=== PATIENT | male | born 1960 | race Caucasian/White ===

== ENCOUNTER → 2016-03-10 | Outpatient (REF) | payer BC ==
[2016-03-10 18:31] LABS: MEAN CORPUSCULAR HEMOGLOBIN 31.6 pg (27.0-33.0); MEAN CORPUSCULAR HGB CONC 33.2 g/dl (32.0-36.5); MEAN CORPUSCULAR VOLUME 95.1 fl (80.0-96.0); RED CELL DISTRIBUTION WIDTH 13.5 % (11.5-14.5); WHITE BLOOD COUNT 6.2 K/mm3 (4.0-10.0)
[2016-03-10 19:35] LABS: URIC ACID 4.6 MG/DL (3.5-7.2)
== END ==
LOC: M SFHCCLAY 08:50
PROVIDERS: ATTEND Nurse Practitioner Family
DX: R79.89 Other specified abnormal findings of blood chemistry (principal); R73.01 Impaired fasting glucose; E78.4 Other hyperlipidemia; M10.9 Gout, unspecified; E55.9 Vitamin D deficiency, unspecified

== ENCOUNTER → 2016-08-15 | Outpatient (REF) | payer OTHER ==
[2016-08-15 12:17] LABS: URIC ACID 4.9 MG/DL (3.5-7.2)
== END ==
LOC: M LABDRAW1 11:17
PROVIDERS: ATTEND Nurse Practitioner Family
DX: E55.9 Vitamin D deficiency, unspecified (principal); E11.69 Type 2 diabetes mellitus with other specified complication; M10.9 Gout, unspecified; E78.4 Other hyperlipidemia

== ENCOUNTER → 2017-04-14 | Outpatient (CLI) | payer OTHER, MEDICAID ==
[2017-04-14 10:59] LABS: HEMATOCRIT 40.4 % (42.0-52.0); HEMOGLOBIN 13.4 g/dl (14.0-18.0); MEAN CORPUSCULAR HEMOGLOBIN 30.5 pg (27.0-33.0); MEAN CORPUSCULAR HGB CONC 33.2 g/dl (32.0-36.5); PLATELET COUNT, AUTOMATED 222 10^3/uL (150-450); RED BLOOD COUNT 4.39 10^6/uL (4.30-6.10); RED CELL DISTRIBUTION WIDTH 12.8 % (11.5-14.5); WHITE BLOOD COUNT 5.5 10^3/uL (4.0-10.0)
[2017-04-14 11:15] LABS: ALBUMIN 4.1 GM/DL (3.2-5.2); ALBUMIN/GLOBULIN RATIO 1.28 (1.00-1.93); ALKALINE PHOSPHATASE 33 U/L (45-117); ALT/SGPT 27 U/L (12-78); ANION GAP 8 MEQ/L (8-16); AST/SGOT 17 U/L (7-37); BILIRUBIN,TOTAL 0.4 MG/DL (0.2-1.0); BLOOD UREA NITROGEN 23 MG/DL (7-18); CALCIUM LEVEL 8.8 MG/DL (8.5-10.1); CARBON DIOXIDE LEVEL 27 MEQ/L (21-32); CHLORIDE LEVEL 106 MEQ/L (98-107); CHOLESTEROL LEVEL 140 MG/DL (<200); CREATININE FOR GFR 0.93 MG/DL (0.70-1.30); GLOMERULAR FILTRATION RATE > 60.0 (>56); GLUCOSE, FASTING 111 MG/DL (70-100); HDL CHOLESTEROL 35 MG/DL (>40); LDL CHOLESTEROL 67.2 MG/DL (<100); NON-HDL-C 105 MG/DL; POTASSIUM SERUM 4.4 MEQ/L (3.5-5.1); SODIUM LEVEL 141 MEQ/L (136-145); TOTAL PROTEIN 7.3 GM/DL (6.4-8.2); TRIGLYCERIDES LEVEL 189 MG/DL (<150); URIC ACID 4.3 MG/DL (3.5-7.2)
[2017-04-14 11:16] LABS: ESTIMATED AVERAGE GLUCOSE 134 MG/DL (60-110); HEMOGLOBIN A1c 6.3 %
== END ==
LOC: M WUC 08:50
DX: E55.9 Vitamin D deficiency, unspecified (principal); M10.9 Gout, unspecified; E78.4 Other hyperlipidemia; E11.69 Type 2 diabetes mellitus with other specified complication; I10 Essential (primary) hypertension
CPT/HCPCS: 84550

== ENCOUNTER → 2018-01-13 | Outpatient (CLI) | payer OTHER, MEDICAID ==
[2018-01-13 17:59] LABS: APPEARANCE, URINE CLEAR (CLEAR); BACTERIA, URINE AUTO NEGATIVE (NEGATIVE); BILIRUBIN, URINE AUTO NEGATIVE (NEGATIVE); BLOOD, URINE BLOOD NEGATIVE (NEGATIVE); COLOR, URINE YELLOW (YELLOW); GLUCOSE, URINE (UA) AUTO NEGATIVE (NEGATIVE); KETONE, URINE AUTO NEGATIVE (NEGATIVE); LEUKOCYTE ESTERASE, URINE AUTO NEGATIVE (NEGATIVE); NITRITE, URINE AUTO NEGATIVE (NEGATIVE); PROTEIN, URINE AUTO NEGATIVE (NEGATIVE); RBC, URINE AUTO 1 /HPF (0-3); SQUAMOUS EPITHELIAL CELL UR AU 0 /HPF (0-6); WBC, URINE AUTO 0 /HPF (0-3)
[2018-01-13 18:07] LABS: CHOLESTEROL LEVEL 135 MG/DL (<200); CHOLESTEROL RISK RATIO 4.821 (<5); HDL CHOLESTEROL 28 MG/DL (>40); LDL CHOLESTEROL 72 MG/DL (<100); NON-HDL-C 107 MG/DL; TRIGLYCERIDES LEVEL 175 MG/DL (<150); URIC ACID 3.9 MG/DL (3.5-7.2)
[2018-01-13 18:19] LABS: ESTIMATED AVERAGE GLUCOSE 143 MG/DL (60-110); HEMOGLOBIN A1c 6.6 %
[2018-01-13 19:05] LABS: MALB URINE SIEMENS 12.3 MG/L; MAU/CREAT RATIO 9.6 MCG/MG (0.0-30.0); TOTAL PROTEIN,RANDOM URINE 12.6 MG/DL (0.0-12.0)
[2018-01-14 10:28] LABS: TOTAL 25(OH) VITAMIN D 42.6 NG/ML (30.0-100.0)
== END ==
LOC: M WUC 09:36
DX: E11.69 Type 2 diabetes mellitus with other specified complication (principal); E78.49 Other hyperlipidemia; M10.9 Gout, unspecified; E55.9 Vitamin D deficiency, unspecified
CPT/HCPCS: 84550

== ENCOUNTER → 2018-01-29 | Outpatient (CLI) | payer OTHER ==
[2018-01-29 20:46] LABS: GLOMERULAR FILTRATION RATE > 60.0 (>56)
[2018-01-29 20:46] LABS: BLOOD UREA NITROGEN 20 MG/DL (7-18)
== END ==
LOC: M WUC 15:55
DX: R91.8 Other nonspecific abnormal finding of lung field (principal)
CPT/HCPCS: 82565

== ENCOUNTER → 2018-01-31 | Outpatient (CLI) | payer OTHER ==
[~2018-01-31] MED LIST: ISOVUE-370 76% 100ML VIAL (Q9967) As Ordered
== END ==
LOC: M RAD 14:36
DX: R91.8 Other nonspecific abnormal finding of lung field (principal)
CPT/HCPCS: Q9967

== ENCOUNTER → 2018-08-08 | Outpatient (CLI) | payer OTHER, MEDICAID ==
[2018-08-08 13:07] LABS: HEMATOCRIT 38.9 % (42.0-52.0); MEAN CORPUSCULAR HGB CONC 33.4 g/dl (32.0-36.5); MEAN CORPUSCULAR VOLUME 95.8 fl (80.0-96.0); PLATELET COUNT, AUTOMATED 196 10^3/uL (150-450); RED BLOOD COUNT 4.06 10^6/uL (4.30-6.10); WHITE BLOOD COUNT 4.9 10^3/uL (4.0-10.0)
[2018-08-08 13:17] LABS: ALT/SGPT 59 U/L (12-78); BILIRUBIN,TOTAL 0.6 MG/DL (0.2-1.0); BLOOD UREA NITROGEN 23 MG/DL (7-18); CALCIUM LEVEL 9.4 MG/DL (8.5-10.1); CARBON DIOXIDE LEVEL 31 MEQ/L (21-32); CHLORIDE LEVEL 103 MEQ/L (98-107); CHOLESTEROL LEVEL 152 MG/DL (<200); CHOLESTEROL RISK RATIO 5.066 (<5); CREATININE FOR GFR 1.04 MG/DL (0.70-1.30); GLOMERULAR FILTRATION RATE > 60.0 (>56); GLUCOSE, FASTING 120 MG/DL (70-100); HDL CHOLESTEROL 30 MG/DL (>40); LDL CHOLESTEROL 59 MG/DL (<100); NON-HDL-C 122 MG/DL; POTASSIUM SERUM 4.6 MEQ/L (3.5-5.1); SODIUM LEVEL 139 MEQ/L (136-145); TOTAL PROTEIN 7.2 GM/DL (6.4-8.2); TRIGLYCERIDES LEVEL 316 MG/DL (<150); URIC ACID 4.5 MG/DL (3.5-7.2)
[2018-08-08 13:19] LABS: TOTAL 25(OH) VITAMIN D 26.9 NG/ML (30.0-100.0)
[2018-08-08 14:19] LABS: HEMOGLOBIN A1c 6.5 %
== END ==
LOC: M WUC 08:28
PROVIDERS: ATTEND Nurse Practitioner Family
DX: I10 Essential (primary) hypertension (principal); E11.69 Type 2 diabetes mellitus with other specified complication; M10.9 Gout, unspecified; E55.9 Vitamin D deficiency, unspecified; E78.49 Other hyperlipidemia

== ENCOUNTER → 2019-02-23 | Outpatient (CLI) | payer OTHER, MEDICAID ==
[2019-02-23 13:39] LABS: HEMOGLOBIN A1c 6.7 %
[2019-02-23 13:44] LABS: CHOLESTEROL RISK RATIO 5.032 (<5)
[2019-02-23 13:54] LABS: CREATININE, URINE 77.8 MG/DL; MALB URINE SIEMENS 7.6 MG/L; MAU/CREAT RATIO 9.7 MCG/MG (0.0-30.0)
== END ==
LOC: M WUC 08:16
PROVIDERS: ATTEND Nurse Practitioner Family
DX: E11.69 Type 2 diabetes mellitus with other specified complication (principal); E78.49 Other hyperlipidemia

== ENCOUNTER → 2019-11-08 | Outpatient (CLI) | payer OTHER, MEDICAID ==
[2019-11-08 13:56] LABS: ALBUMIN 3.9 GM/DL (3.2-5.2); ALT/SGPT 37 U/L (12-78); BILIRUBIN,TOTAL 0.7 MG/DL (0.2-1.0); BLOOD UREA NITROGEN 21 MG/DL (7-18); CARBON DIOXIDE LEVEL 29 MEQ/L (21-32); CHLORIDE LEVEL 105 MEQ/L (98-107); CHOLESTEROL LEVEL 158 MG/DL (<200); CREATININE FOR GFR 0.88 MG/DL (0.70-1.30); GLOMERULAR FILTRATION RATE > 60.0 (>49); GLUCOSE, FASTING 116 MG/DL (70-100); HDL CHOLESTEROL 37 MG/DL (>40); LDL CHOLESTEROL 71 MG/DL (<100); NON-HDL-C 121 MG/DL; POTASSIUM SERUM 4.3 MEQ/L (3.5-5.1); SODIUM LEVEL 138 MEQ/L (136-145); TOTAL PROTEIN 6.9 GM/DL (6.4-8.2); TRIGLYCERIDES LEVEL 248 MG/DL (<150); URIC ACID 4.4 MG/DL (3.5-7.2)
[2019-11-10 11:01] LABS: TOTAL 25(OH) VITAMIN D 28.4 NG/ML (30.0-100.0)
== END ==
LOC: M WUC 08:51
PROVIDERS: ATTEND Family Medicine
DX: E11.69 Type 2 diabetes mellitus with other specified complication (principal); I10 Essential (primary) hypertension; E78.5 Hyperlipidemia, unspecified; E55.9 Vitamin D deficiency, unspecified; M10.9 Gout, unspecified

== ENCOUNTER 2020-02-28 02:48 | Emergency (ER) | payer OTHER, MEDICAID ==
[~2020-02-28] VITALS: Ht 177.8 cm; Wt 127.6 kg
[2020-02-28 02:49] VITALS: BP 190/88
== END 2020-02-28 07:01 | disposition left against medical advice (07) ==
LOC: M ED 02:48
DX: Z53.21 Procedure and treatment not carried out due to patient leaving prior to being seen by health care provider (principal)

== ENCOUNTER → 2020-06-15 | Outpatient (CLI) | payer OTHER, MEDICAID ==
[2020-06-15 12:30] LABS: HEMOGLOBIN A1c 5.9 %
[2020-06-15 12:41] LABS: CHOLESTEROL RISK RATIO 4.189 (<5); URIC ACID 5.1 MG/DL (3.5-7.2)
[2020-06-15 12:48] LABS: MALB URINE SIEMENS 14.8 MG/L; MAU/CREAT RATIO 13.4 MCG/MG (0.0-30.0)
[2020-06-15 12:49] LABS: TOTAL 25(OH) VITAMIN D 25.6 NG/ML (30.0-100.0)
== END ==
LOC: M WUC 08:46
PROVIDERS: ATTEND Nurse Practitioner Family
DX: E11.69 Type 2 diabetes mellitus with other specified complication (principal); E78.5 Hyperlipidemia, unspecified; E55.9 Vitamin D deficiency, unspecified; M10.9 Gout, unspecified

== ENCOUNTER → 2020-06-29 | Outpatient (CLI) | payer OTHER, MEDICAID ==
--- NOTE | 2020-06-29 15:15 | DEXAMM ---
INDICATION: M80.0 AGE RELATED OSTEOPOROSIS. COMPARISON: None. TECHNIQUE: Bone density was measured using dual-energy x-ray absorptiometry (DEXA). FINDINGS: AP SPINE L1-L4 BMD 1.474 g/cm2 Young Adult T-Score 2.3 Age Matched Z-Score 2.3. LT FEMUR, TOTAL BMD 1.092 g/cm2 Young Adult T-Score 0.7 Age Matched Z-Score 0.4. LT NECK BMD 0.982 g/cm2 Young Adult T-Score -0.4 Age Matched Z-Score 0.3. RT FEMUR, TOTAL BMD 1.116 g/cm2 Young Adult T-Score 0.9 Age Matched Z-Score 0.6. RT NECK BMD 1.108 g/cm2 Young Adult T-Score 0.5 Age Matched Z-Score 1.2. IMPRESSION: There is normal bone density of the spine. There is normal bone density of the left hip. There is normal bone density of the right hip. FOLLOW-UP: Recommendation for the next bone density exam: 5 years. <Electronically signed by Kevin Santos > 06/29/20 [id number]
== END ==
LOC: M WHC 13:08
PROVIDERS: ATTEND Nurse Practitioner Family
DX: M81.0 Age-related osteoporosis without current pathological fracture (principal); R91.8 Other nonspecific abnormal finding of lung field

== ENCOUNTER → 2020-06-29 | Outpatient (CLI) | payer OTHER, MEDICAID ==
[~2020-06-29] MED LIST changes: -ISOVUE-370 76% 100ML VIAL (Q9967) As Ordered; +ISOVUE-370 76% 100ML VIAL As Ordered ONE
--- NOTE | 2020-06-30 05:59 | REP ---
INDICATION: OTHER NONSPECIFIC ABNORMAL FINDING OF LUNG FIELD COMPARISON: 01/31/2018 TECHNIQUE: Axial contrast enhanced images from the thoracic inlet to the upper abdomen with coronal and sagittal reformations using 75 ml Isovue 370 intravenous contrast material. This CT examination was performed using the following dose reduction techniques: Automated exposure control, adjustment of mA and/or kv according to the patient's size, and use of iterative reconstruction technique. FINDINGS: The bilateral lung garcia demonstrate chronic interstitial changes with trace right middle lobe and basilar (right greater than left) fibroatelectatic change. Few small noncalcified nodules previously identified have either regressed or remains stable as compared with 2018. No new significant nodule or mass lesion appreciated. No consolidation. No effusion. No pneumothorax. Tracheobronchial tree is patent. No significant axillary, hilar, or mediastinal adenopathy. Mediastinum demonstrates stable atherosclerotic changes to the thoracic aorta and coronary arteries without aortic aneurysm, dissection, cardiomegaly or pericardial effusion. Musculoskeletal structures are intact and without acute osseous abnormality. Limited upper abdomen demonstrates hepatosteatosis and normal bilateral adrenal glands. IMPRESSION: 1. Mild fibroatelectatic changes and relatively stable small noncalcified nodules as compared with 2018. 2. No acute mediastinal or pleuroparenchymal process appreciated. <Electronically signed by Sj Menon > 06/30/20 [id number]
== END ==
LOC: M RAD 14:36
PROVIDERS: ATTEND Nurse Practitioner Family
DX: R91.8 Other nonspecific abnormal finding of lung field (principal)
CPT/HCPCS: 71260; Q9967

== ENCOUNTER → 2020-08-09 | Outpatient (CLI) | payer OTHER, MEDICAID ==
--- NOTE | 2020-08-09 10:23 | REP ---
INDICATION: PAIN. COMPARISON: None. TECHNIQUE: Four views FINDINGS: Degenerative changes seen throughout the foot with mild to moderate joint space narrowing throughout. There is an incomplete fracture involving the proximal diaphysis of the 5th metatarsal there is no evidence of callus formation, however, the age of this cannot be determined. There is an incidental type 1 os naviculare. IMPRESSION: 1. Fifth metatarsal fracture as described above. 2. Chronic changes as described above. <Electronically signed by Franki Lambert > 08/09/20 [id number]
== END ==
LOC: M WUC 09:07
PROVIDERS: ATTEND Physician Assistant
DX: M79.672 Pain in left foot (principal)

== ENCOUNTER → 2020-12-02 | Outpatient (CLI) | payer OTHER, MEDICAID ==
[2020-12-02 07:03] LABS: EOS # 0.3 10^3/uL (0.0-0.5); HEMATOCRIT 36.6 % (42.0-52.0); HEMOGLOBIN 12.3 g/dl (13.5-17.5); LYMPH # 0.8 10^3/uL (1.5-5.0); LYMPH % 21.2 % (24.0-44.0); MEAN CORPUSCULAR HEMOGLOBIN 32.6 pg (27.0-33.0); MEAN CORPUSCULAR HGB CONC 33.6 g/dl (32.0-36.5); MEAN CORPUSCULAR VOLUME 97.1 fl (80.0-96.0); MONO # 0.4 10^3/uL (0.0-0.8); MONO % 10.4 % (2.0-8.0); NEUTROPHILS # 2.3 10^3/uL (1.5-8.5); NEUTROPHILS % 59.6 % (36.0-66.0); PLATELET COUNT, AUTOMATED 148 10^3/uL (150-450); RED BLOOD COUNT 3.77 10^6/uL (4.30-6.10); WHITE BLOOD COUNT 3.9 10^3/uL (4.0-10.0)
[2020-12-02 07:28] LABS: ALBUMIN 3.5 GM/DL (3.2-5.2); ALT/SGPT 38 U/L (12-78); BILIRUBIN,TOTAL 0.7 MG/DL (0.2-1.0); BLOOD UREA NITROGEN 23 MG/DL (7-18); CALCIUM LEVEL 8.6 MG/DL (8.8-10.2); CARBON DIOXIDE LEVEL 29 MEQ/L (21-32); CHLORIDE LEVEL 108 MEQ/L (98-107); CHOLESTEROL LEVEL 144 MG/DL (<200); CHOLESTEROL RISK RATIO 4.645 (<5); GLOMERULAR FILTRATION RATE > 60.0 (>49); GLUCOSE, FASTING 118 MG/DL (70-100); HDL CHOLESTEROL 31 MG/DL (>40); LDL CHOLESTEROL 67 MG/DL (<100); NON-HDL-C 113 MG/DL; POTASSIUM SERUM 3.9 MEQ/L (3.5-5.1); SODIUM LEVEL 141 MEQ/L (136-145); TOTAL PROTEIN 6.7 GM/DL (6.4-8.2); TRIGLYCERIDES LEVEL 230 MG/DL (<150)
== END ==
LOC: M LAB 06:26
PROVIDERS: ATTEND Student in an Organized Health Care Education/Training Program
DX: Z00.00 Encounter for general adult medical examination without abnormal findings (principal); E11.9 Type 2 diabetes mellitus without complications

== ENCOUNTER → 2021-01-03 | Outpatient (CLI) | payer OTHER ==
[2021-01-03 07:28] LABS: BASO % 0.5 % (0.0-1.0); EOS # 0.2 10^3/uL (0.0-0.5); EOS % 3.2 % (0.0-3.0); HEMATOCRIT 39.3 % (42.0-52.0); HEMOGLOBIN 13.4 g/dl (13.5-17.5); LYMPH # 1.1 10^3/uL (1.5-5.0); LYMPH % 17.7 % (24.0-44.0); MEAN CORPUSCULAR HEMOGLOBIN 32.1 pg (27.0-33.0); MEAN CORPUSCULAR HGB CONC 34.1 g/dl (32.0-36.5); MONO # 0.7 10^3/uL (0.0-0.8); MONO % 10.5 % (2.0-8.0); NEUTROPHILS # 4.2 10^3/uL (1.5-8.5); NEUTROPHILS % 67.5 % (36.0-66.0); PLATELET COUNT, AUTOMATED 178 10^3/uL (150-450); RED BLOOD COUNT 4.18 10^6/uL (4.30-6.10); WHITE BLOOD COUNT 6.3 10^3/uL (4.0-10.0)
== END ==
LOC: M LAB 06:53
PROVIDERS: ATTEND Student in an Organized Health Care Education/Training Program
DX: D72.818 Other decreased white blood cell count (principal)

== ENCOUNTER → 2021-01-27 | Outpatient (REF) | LOC: M LABSMTC 12:44 | PROVIDERS: ATTEND Pediatrics | DX: Z20.822 Contact with and (suspected) exposure to COVID-19 (principal) ==

== ENCOUNTER → 2021-04-29 | Outpatient (CLI) | payer OTHER | LOC: M LAB 07:18 | PROVIDERS: ATTEND Student in an Organized Health Care Education/Training Program | DX: E11.69 Type 2 diabetes mellitus with other specified complication (principal) ==

== ENCOUNTER 2021-06-12 16:32 | Emergency (ER) | payer OTHER, MEDICAID ==
[~2021-06-12] VITALS: Ht 175.3 cm; Wt 123.2 kg
[2021-06-12] MEDS ORDERED: FENO160T10 PO (17:04)
[2021-06-12] MEDS ORDERED: LISI40TA4 PO (17:04)
[2021-06-12] MEDS ORDERED: CLOP75TA2 PO (17:04)
[2021-06-12] MEDS ORDERED: TIZA4CAP PO (17:04)
[2021-06-12] MEDS ORDERED: ROSU20TA5 PO (17:04)
[2021-06-12] MEDS ORDERED: ATEN100T PO (17:04)
[2021-06-12] MEDS ORDERED: SERT50TA29 PO (17:04)
[2021-06-12] MEDS ORDERED: OMEP40CA5 PO (17:04)
[2021-06-12] MEDS ORDERED: HYDR-3490 PO (17:04)
[2021-06-12 18:49] LABS: CK-MB VALUE MASS 4.4 NG/ML (<3.6); MB/CK RELATIVE INDEX 3.64 (< OR =4)
[2021-06-12 18:55] LABS: BLOOD UREA NITROGEN 17 MG/DL (7-18); CARBON DIOXIDE LEVEL 28 MEQ/L (21-32); CHLORIDE LEVEL 106 MEQ/L (98-107); CREATININE FOR GFR 1.06 MG/DL (0.70-1.30); GLOMERULAR FILTRATION RATE > 60.0 (>49); GLUCOSE, FASTING 116 MG/DL (70-100); MAGNESIUM LEVEL 1.4 MG/DL (1.8-2.4); POTASSIUM SERUM 3.9 MEQ/L (3.5-5.1); SODIUM LEVEL 142 MEQ/L (136-145)
[2021-06-12] MEDS ORDERED: MAG SULF 1GM/100ML (MAG RUN) 1 GM in IV 1 EA IV ONE (19:05)
[2021-06-12 19:32] LABS: BASO % 0.3 % (0.0-1.0); EOS # 0.1 10^3/uL (0.0-0.5); EOS % 1.3 % (0.0-3.0); HEMATOCRIT 36.7 % (42.0-52.0); HEMOGLOBIN 12.7 g/dl (13.5-17.5); LYMPH # 1.1 10^3/uL (1.5-5.0); LYMPH % 12.2 % (24.0-44.0); MEAN CORPUSCULAR HEMOGLOBIN 32.4 pg (27.0-33.0); MEAN CORPUSCULAR HGB CONC 34.6 g/dl (32.0-36.5); MEAN CORPUSCULAR VOLUME 93.6 fl (80.0-96.0); MONO # 0.6 10^3/uL (0.0-0.8); MONO % 6.7 % (2.0-8.0); NEUTROPHILS # 6.8 10^3/uL (1.5-8.5); NEUTROPHILS % 78.9 % (36.0-66.0); PLATELET COUNT, AUTOMATED 183 10^3/uL (150-450); RED BLOOD COUNT 3.92 10^6/uL (4.30-6.10); WHITE BLOOD COUNT 8.6 10^3/uL (4.0-10.0)
[2021-06-12] MEDS ORDERED: lisinopriL 40MG TAB PO ONE (20:25)
[2021-06-12] MEDS ORDERED: hydrALAZINE 20MG/ML 1ML VIAL (J0360 PER 20MG) IV STA (20:26)
[2021-06-12] MEDS ORDERED: ACETAMINOPHEN 325 MG TAB PO ONE (21:10)
[2021-06-12 22:02] LABS: RSV AMPLIFICATION NEGATIVE (NEGATIVE)
[2021-06-12] MEDS ORDERED: hydrALAZINE 20MG/ML 1ML VIAL (J0360 PER 20MG) IV ONE (22:05)
[2021-06-12 22:18] VITALS: BP 199/78
[2021-06-12] MEDS ORDERED: VITA100093 PO (23:50)
[2021-06-12] MEDS ORDERED: SPIR-10 PO (23:52)
[2021-06-12] MEDS ORDERED: HOME MED LIST COMPLETE! XX SCH (23:55)
[2021-06-13] MEDS ORDERED: **hydrALAZINE HCL** 25 MG TAB PO ONE (02:50)
[2021-06-13] MEDS ORDERED: ACETAMINOPHEN TAB 650MG DOSE (2X325MG) PO ONE (02:50)
[2021-06-13 03:46] VITALS: BP 162/90
== END 2021-06-13 04:02 | disposition home or self-care (01) ==
LOC: M ED 16:32
DX: R51.9 Headache, unspecified (principal); I16.0 Hypertensive urgency; R94.31 Abnormal electrocardiogram [ECG] [EKG]; I10 Essential (primary) hypertension; K21.9 Gastro-esophageal reflux disease without esophagitis; E78.5 Hyperlipidemia, unspecified; Z79.811 Long term (current) use of aromatase inhibitors; Z79.899 Other long term (current) drug therapy
CPT/HCPCS: 70450; 71045; 71046; 80048; 82550; 82553; 83735; 84439; 84443; 84484; 85025; 87631; 93005; 93041; 94760; 96365; 96366; 96375; 99285; J0360; J3475

== ENCOUNTER → 2021-08-28 | Outpatient (CLI) | payer OTHER, MEDICAID ==
[~2021-08-28] MED LIST changes: +ATEN100T PO; +CLOP75TA2 PO; +FENO160T10 PO; +HYDR-3490 PO; -ISOVUE-370 76% 100ML VIAL As Ordered ONE; +LISI40TA4 PO; +OMEP40CA5 PO; +ROSU20TA5 PO; +SERT50TA29 PO; +SPIR-10 PO; +TIZA4CAP PO; +VITA100093 PO
[2021-08-28 09:05] LABS: BASO % 0.7 % (0.0-1.0); EOS # 0.4 10^3/uL (0.0-0.5); EOS % 6.6 % (0.0-3.0); HEMATOCRIT 36.5 % (42.0-52.0); HEMOGLOBIN 12.3 g/dl (13.5-17.5); LYMPH # 1.1 10^3/uL (1.5-5.0); LYMPH % 19.9 % (24.0-44.0); MEAN CORPUSCULAR HEMOGLOBIN 31.6 pg (27.0-33.0); MEAN CORPUSCULAR HGB CONC 33.7 g/dl (32.0-36.5); MEAN CORPUSCULAR VOLUME 93.8 fl (80.0-96.0); MONO # 0.5 10^3/uL (0.0-0.8); MONO % 9.9 % (2.0-8.0); NEUTROPHILS # 3.3 10^3/uL (1.5-8.5); NEUTROPHILS % 62.3 % (36.0-66.0); PLATELET COUNT, AUTOMATED 175 10^3/uL (150-450); RED BLOOD COUNT 3.89 10^6/uL (4.30-6.10); WHITE BLOOD COUNT 5.3 10^3/uL (4.0-10.0)
[2021-08-28 09:33] LABS: ALBUMIN 3.9 GM/DL (3.2-5.2); ALT/SGPT 28 U/L (12-78); BILIRUBIN,TOTAL 0.7 MG/DL (0.2-1.0); BLOOD UREA NITROGEN 22 MG/DL (7-18); CALCIUM LEVEL 8.9 MG/DL (8.8-10.2); CARBON DIOXIDE LEVEL 28 MEQ/L (21-32); CHLORIDE LEVEL 104 MEQ/L (98-107); CHOLESTEROL LEVEL 156 MG/DL (<200); CHOLESTEROL RISK RATIO 4.333 (<5); CREATININE FOR GFR 0.93 MG/DL (0.70-1.30); GLOMERULAR FILTRATION RATE > 60.0 (>49); GLUCOSE, FASTING 115 MG/DL (70-100); HDL CHOLESTEROL 36 MG/DL (>40); LDL CHOLESTEROL 79 MG/DL (<100); NON-HDL-C 120 MG/DL; POTASSIUM SERUM 4.4 MEQ/L (3.5-5.1); SODIUM LEVEL 138 MEQ/L (136-145); TRIGLYCERIDES LEVEL 205 MG/DL (<150)
== END ==
LOC: M LAB 08:32
PROVIDERS: ATTEND Student in an Organized Health Care Education/Training Program
DX: I10 Essential (primary) hypertension (principal)

== ENCOUNTER → 2022-04-11 | Outpatient (CLI) | payer OTHER, MEDICAID ==
[2022-04-11 09:36] LABS: BASO % 0.4 % (0.0-1.0); EOS # 0.2 10^3/uL (0.0-0.5); EOS % 3.2 % (0.0-3.0); HEMATOCRIT 39.1 % (42.0-52.0); HEMOGLOBIN 13.1 g/dl (13.5-17.5); LYMPH # 1.2 10^3/uL (1.5-5.0); LYMPH % 26.2 % (24.0-44.0); MEAN CORPUSCULAR HEMOGLOBIN 31.1 pg (27.0-33.0); MEAN CORPUSCULAR HGB CONC 33.5 g/dl (32.0-36.5); MEAN CORPUSCULAR VOLUME 92.9 fl (80.0-96.0); MONO # 0.6 10^3/uL (0.0-0.8); MONO % 11.6 % (2.0-8.0); NEUTROPHILS # 2.7 10^3/uL (1.5-8.5); NEUTROPHILS % 57.8 % (36.0-66.0); PLATELET COUNT, AUTOMATED 192 10^3/uL (150-450); RED BLOOD COUNT 4.21 10^6/uL (4.30-6.10); WHITE BLOOD COUNT 4.7 10^3/uL (4.0-10.0)
[2022-04-11 09:50] LABS: ALBUMIN 3.8 G/DL (3.2-5.2); ALKALINE PHOSPHATASE 48 U/L (46-116); ALT/SGPT 24 U/L (7.0-40); AST/SGOT 19 U/L (<34); BILIRUBIN,TOTAL 0.8 MG/DL (0.3-1.2); BLOOD UREA NITROGEN 16 MG/DL (9-23); CALCIUM LEVEL 8.9 MG/DL (8.3-10.6); CARBON DIOXIDE LEVEL 31 MMOL/L (20-31); CHLORIDE LEVEL 102 MMOL/L (98-107); CHOLESTEROL LEVEL 152 MG/DL (<200); CHOLESTEROL RISK RATIO 4.28 (<5); CREATININE FOR GFR 0.82 MG/DL (0.70-1.30); GLOMERULAR FILTRATION RATE > 60.0 (>49); GLUCOSE, FASTING 126 MG/DL (74-106); HDL CHOLESTEROL 35.5 MG/DL (>40); LDL CHOLESTEROL 78.9 MG/DL (<100); NON-HDL-C 117 MG/DL; POTASSIUM SERUM 4.3 MMOL/L (3.5-5.1); SODIUM LEVEL 139 MMOL/L (136-145); TOTAL PROTEIN 6.8 G/DL (5.7-8.2); TRIGLYCERIDES LEVEL 188 MG/DL (<150)
[2022-04-11 09:50] LABS: CREATININE, URINE 72.4 MG/DL; MAU/CREAT RATIO 5.5 MCG/MG (0.0-30.0)
[2022-04-11 10:46] LABS: HEMOGLOBIN A1c 6.1 % (4.0-6.0)
== END ==
LOC: M LAB 08:52
PROVIDERS: ATTEND Student in an Organized Health Care Education/Training Program
DX: E11.69 Type 2 diabetes mellitus with other specified complication (principal)

== ENCOUNTER → 2022-11-03 | Outpatient (CLI) | payer OTHER, MEDICAID ==
[~2022-11-03] MED LIST changes: -ROSU20TA5 PO; +ROSU20TA61 PO
[2022-11-03 08:50] LABS: BASO % 0.3 % (0.0-1.0); EOS # 0.2 10^3/uL (0.0-0.5); EOS % 3.4 % (0.0-3.0); HEMATOCRIT 33.9 % (42.0-52.0); HEMOGLOBIN 11.2 g/dl (13.5-17.5); LYMPH # 1.1 10^3/uL (1.5-5.0); LYMPH % 17.3 % (24.0-44.0); MEAN CORPUSCULAR HEMOGLOBIN 29.2 pg (27.0-33.0); MEAN CORPUSCULAR VOLUME 88.5 fl (80.0-96.0); MONO # 0.9 10^3/uL (0.0-0.8); MONO % 14.2 % (2.0-8.0); NEUTROPHILS # 3.9 10^3/uL (1.5-8.5); NEUTROPHILS % 63.8 % (36.0-66.0); PLATELET COUNT, AUTOMATED 241 10^3/uL (150-450); RED BLOOD COUNT 3.83 10^6/uL (4.30-6.10); WHITE BLOOD COUNT 6.1 10^3/uL (4.0-10.0)
[2022-11-03 09:09] LABS: HEMOGLOBIN A1c 6.6 % (4.0-6.0)
== END ==
LOC: M LAB 08:09
PROVIDERS: ATTEND Student in an Organized Health Care Education/Training Program
DX: E11.69 Type 2 diabetes mellitus with other specified complication (principal); R79.89 Other specified abnormal findings of blood chemistry

== ENCOUNTER → 2023-01-23 | Outpatient (CLI) | payer OTHER ==
[2023-01-23 15:04] LABS: BASO % 0.5 % (0.0-1.0); EOS # 0.3 10^3/uL (0.0-0.5); EOS % 4.6 % (0.0-3.0); HEMOGLOBIN 13.2 g/dl (13.5-17.5); LYMPH # 1.2 10^3/uL (1.5-5.0); LYMPH % 21.4 % (24.0-44.0); MEAN CORPUSCULAR HEMOGLOBIN 30.4 pg (27.0-33.0); MEAN CORPUSCULAR HGB CONC 33.8 g/dl (32.0-36.5); MEAN CORPUSCULAR VOLUME 89.9 fl (80.0-96.0); MONO % 17.3 % (2.0-8.0); NEUTROPHILS # 3.2 10^3/uL (1.5-8.5); NEUTROPHILS % 55.3 % (36.0-66.0); PLATELET COUNT, AUTOMATED 181 10^3/uL (150-450); RED BLOOD COUNT 4.34 10^6/uL (4.30-6.10); WHITE BLOOD COUNT 5.7 10^3/uL (4.0-10.0)
[2023-01-23 15:32] LABS: IRON (FE) 61 UG/DL (65-175); PERCENT SATURATION 21.5 % (19.7-50.0); TOTAL IRON BINDING CAPACITY 284 UG/DL (250-425)
[2023-01-23 15:34] LABS: FERRITIN 173.1 NG/ML (10.5-307.3); TOTAL 25(OH) VITAMIN D 41.3 NG/ML (20.0-100.0); VITAMIN B12 LEVEL 404 PG/ML (211-911)
[2023-01-23 15:36] LABS: FOLATE > 24.00 NG/ML (>5.4)
== END ==
LOC: M WUC 11:36
PROVIDERS: ATTEND Physician Assistant
DX: Z12.5 Encounter for screening for malignant neoplasm of prostate (principal); E55.9 Vitamin D deficiency, unspecified; D64.9 Anemia, unspecified
CPT/HCPCS: 36415; 82306; 82607; 82728; 82746; 83090; 83550; 83921; 85025; G0103

== ENCOUNTER → 2023-02-06 | Outpatient (REF) | payer OTHER | LOC: M LAB REF 16:23 | PROVIDERS: ATTEND Nurse Practitioner Family | DX: S39.012A Strain of muscle, fascia and tendon of lower back, initial encounter (principal); X58.XXXA Exposure to other specified factors, initial encounter; Y92.9 Unspecified place or not applicable; Y93.9 Activity, unspecified; Y99.9 Unspecified external cause status ==

== ENCOUNTER → 2023-03-27 | Outpatient (CLI) | payer OTHER, MEDICAID ==
[2023-03-27 10:13] LABS: BASO % 0.5 % (0.0-1.0); EOS # 0.1 10^3/uL (0.0-0.5); EOS % 2.5 % (0.0-3.0); HEMATOCRIT 39.4 % (42.0-52.0); HEMOGLOBIN 13.1 g/dl (13.5-17.5); LYMPH # 1.2 10^3/uL (1.5-5.0); LYMPH % 21.8 % (24.0-44.0); MEAN CORPUSCULAR HEMOGLOBIN 30.5 pg (27.0-33.0); MEAN CORPUSCULAR HGB CONC 33.2 g/dl (32.0-36.5); MEAN CORPUSCULAR VOLUME 91.8 fl (80.0-96.0); MONO # 0.8 10^3/uL (0.0-0.8); MONO % 14.2 % (2.0-8.0); NEUTROPHILS # 3.3 10^3/uL (1.5-8.5); NEUTROPHILS % 59.4 % (36.0-66.0); PLATELET COUNT, AUTOMATED 169 10^3/uL (150-450); RED BLOOD COUNT 4.29 10^6/uL (4.30-6.10); WHITE BLOOD COUNT 5.6 10^3/uL (4.0-10.0)
[2023-03-27 10:23] LABS: INR 1.13; PROTHROMBIN TIME 14.2 SECONDS (12.5-14.5)
[2023-03-27 11:29] LABS: ALKALINE PHOSPHATASE 55 U/L (46-116); ALT/SGPT 24 U/L (7.0-40); AST/SGOT 13 U/L (<34); BILIRUBIN,TOTAL 0.8 MG/DL (0.3-1.2); BLOOD UREA NITROGEN 21 MG/DL (9-23); CALCIUM LEVEL 9.1 MG/DL (8.3-10.6); CARBON DIOXIDE LEVEL 29 MMOL/L (20-31); CHLORIDE LEVEL 103 MMOL/L (98-107); CREATININE FOR GFR 0.83 MG/DL (0.70-1.30); GLOMERULAR FILTRATION RATE > 60.0 (>49); GLUCOSE, FASTING 114 MG/DL (74-106); POTASSIUM SERUM 4.8 MMOL/L (3.5-5.1); SODIUM LEVEL 137 MMOL/L (136-145); TOTAL PROTEIN 7.1 G/DL (5.7-8.2)
== END ==
LOC: M WUC 09:06
PROVIDERS: ATTEND Physician Assistant
DX: R17 Unspecified jaundice (principal)

== ENCOUNTER → 2023-05-31 | Outpatient (CLI) | payer MEDICAID, OTHER ==
[~2023-05-31] MED LIST changes: +AMLO1TAB25 PO; +FERR1TAB8 PO; +METF-838 PO
== END ==
LOC: M WHC 14:50
PROVIDERS: ATTEND Physician Assistant Surgical
DX: S92.354D Nondisplaced fracture of fifth metatarsal bone, right foot, subsequent encounter for fracture with routine healing (principal); X58.XXXA Exposure to other specified factors, initial encounter; Y92.9 Unspecified place or not applicable; Y93.9 Activity, unspecified; Y99.9 Unspecified external cause status

== ENCOUNTER 2023-06-26 08:50 | Day surgery (SDC) | payer OTHER, MEDICAID ==
[~2023-06-26] VITALS: Ht 175.3 cm; Wt 118.4 kg
[~2023-06-26 08:50] MED LIST changes: +NS 1,000 ML IV ONE
[2023-06-26] MEDS ORDERED: propofoL 500 MG/50 ML VIAL As Ordered ONE (10:24)
[2023-06-26 10:25] VITALS: TEMP 98.3
[2023-06-26 10:45] VITALS: BP 174/79; O2SAT 94
== END 2023-06-26 10:53 | disposition home or self-care (01) ==
LOC: M OPP 08:50
PROVIDERS: ATTEND Internal Medicine Gastroenterology
DX: D50.9 Iron deficiency anemia, unspecified (principal); D12.3 Benign neoplasm of transverse colon; D12.2 Benign neoplasm of ascending colon; D12.4 Benign neoplasm of descending colon; K21.00 Gastro-esophageal reflux disease with esophagitis, without bleeding; D12.7 Benign neoplasm of rectosigmoid junction; K57.30 Diverticulosis of large intestine without perforation or abscess without bleeding; K64.8 Other hemorrhoids; K64.4 Residual hemorrhoidal skin tags; K44.9 Diaphragmatic hernia without obstruction or gangrene; K29.70 Gastritis, unspecified, without bleeding; K22.89 Other specified disease of esophagus; E11.9 Type 2 diabetes mellitus without complications; I10 Essential (primary) hypertension; E78.00 Pure hypercholesterolemia, unspecified; G47.30 Sleep apnea, unspecified; Z79.899 Other long term (current) drug therapy; Z79.84 Long term (current) use of oral hypoglycemic drugs; M10.9 Gout, unspecified; Z87.891 Personal history of nicotine dependence

== ENCOUNTER → 2023-07-13 | Outpatient (REF) | payer OTHER, MEDICAID ==
[~2023-07-13] MED LIST changes: -NS 1,000 ML IV ONE
[2023-07-13 14:43] LABS: BASO % 0.6 % (0.0-1.0); EOS # 0.3 10^3/uL (0.0-0.5); EOS % 5.1 % (0.0-3.0); HEMATOCRIT 38.8 % (42.0-52.0); HEMOGLOBIN 12.8 g/dl (13.5-17.5); LYMPH # 1.2 10^3/uL (1.5-5.0); LYMPH % 23.2 % (24.0-44.0); MEAN CORPUSCULAR HEMOGLOBIN 30.6 pg (27.0-33.0); MEAN CORPUSCULAR VOLUME 92.8 fl (80.0-96.0); MONO # 1.1 10^3/uL (0.0-0.8); MONO % 21.9 % (2.0-8.0); NEUTROPHILS # 2.4 10^3/uL (1.5-8.5); NEUTROPHILS % 47.6 % (36.0-66.0); PLATELET COUNT, AUTOMATED 144 10^3/uL (150-450); RED BLOOD COUNT 4.18 10^6/uL (4.30-6.10); WHITE BLOOD COUNT 5.1 10^3/uL (4.0-10.0)
[2023-07-13 14:46] LABS: ALBUMIN 3.9 G/DL (3.2-5.2); ALKALINE PHOSPHATASE 57 U/L (46-116); ALT/SGPT 25 U/L (7.0-40); AST/SGOT 13 U/L (<34); BILIRUBIN,TOTAL 0.6 MG/DL (0.3-1.2); BLOOD UREA NITROGEN 20 MG/DL (9-23); CALCIUM LEVEL 9.1 MG/DL (8.3-10.6); CARBON DIOXIDE LEVEL 27 MMOL/L (20-31); CHLORIDE LEVEL 108 MMOL/L (98-107); CHOLESTEROL LEVEL 150 MG/DL (<200); CHOLESTEROL RISK RATIO 3.47 (<5); CREATININE FOR GFR 0.89 MG/DL (0.70-1.30); GLOMERULAR FILTRATION RATE > 60.0 (>49); GLUCOSE, FASTING 125 MG/DL (74-106); HDL CHOLESTEROL 43.2 MG/DL (>40); IRON (FE) 54 UG/DL (65-175); LDL CHOLESTEROL 77.8 MG/DL (<100); NON-HDL-C 106.8 MG/DL; PERCENT SATURATION 19.5 % (19.7-50.0); POTASSIUM SERUM 4.7 MMOL/L (3.5-5.1); SODIUM LEVEL 141 MMOL/L (136-145); TOTAL IRON BINDING CAPACITY 277 UG/DL (250-425); TOTAL PROTEIN 6.8 G/DL (5.7-8.2); TRIGLYCERIDES LEVEL 145 MG/DL (<150)
[2023-07-13 14:48] LABS: FERRITIN 263.6 NG/ML (10.5-307.3)
[2023-07-13 15:14] LABS: CREATININE, URINE 100.6 MG/DL
[2023-07-13 15:15] LABS: MAU/CREAT RATIO 11.9 MCG/MG (0.0-30.0)
[2023-07-13 15:18] LABS: HEMOGLOBIN A1c 5.8 % (4.0-6.0)
== END ==
LOC: M LABWUC 12:36
PROVIDERS: ATTEND Physician Assistant
DX: E11.69 Type 2 diabetes mellitus with other specified complication (principal); I10 Essential (primary) hypertension; E55.9 Vitamin D deficiency, unspecified; M10.9 Gout, unspecified; D64.9 Anemia, unspecified

== ENCOUNTER → 2023-09-10 | Outpatient (CLI) | payer OTHER, MEDICAID ==
[2023-09-10 12:37] LABS: HEMATOCRIT 37.7 % (42.0-52.0); HEMOGLOBIN 12.4 g/dl (13.5-17.5); MEAN CORPUSCULAR HEMOGLOBIN 30.5 pg (27.0-33.0); MEAN CORPUSCULAR HGB CONC 32.9 g/dl (32.0-36.5); MEAN CORPUSCULAR VOLUME 92.6 fl (80.0-96.0); PLATELET COUNT, AUTOMATED 146 10^3/uL (150-450); RED BLOOD COUNT 4.07 10^6/uL (4.30-6.10); WHITE BLOOD COUNT 5.4 10^3/uL (4.0-10.0)
[2023-09-10 13:12] LABS: FERRITIN 178.6 NG/ML (10.5-307.3)
[2023-09-10 13:19] LABS: PERCENT SATURATION 28.1 % (19.7-50.0)
== END ==
LOC: M WUC 09:08
PROVIDERS: ATTEND Nurse Practitioner Family
DX: D50.9 Iron deficiency anemia, unspecified (principal)

== ENCOUNTER → 2023-10-19 | Outpatient (REF) | payer OTHER, MEDICAID | LOC: M LAB REF 11:17 | PROVIDERS: ATTEND Nurse Practitioner Family | DX: R19.7 Diarrhea, unspecified (principal) ==

== ENCOUNTER → 2023-11-06 | Outpatient (CLI) | payer OTHER, MEDICAID ==
[~2023-11-06] MED LIST changes: +ISOVUE-370 76% 100ML VIAL As Ordered ONE
[2023-11-06 10:52] LABS: BLOOD UREA NITROGEN 16 MG/DL (9-23); CREATININE FOR GFR 0.85 MG/DL (0.70-1.30); GLOMERULAR FILTRATION RATE > 60.0 (>49)
== END ==
LOC: M RAD 08:35
PROVIDERS: ATTEND Nurse Practitioner Family
DX: D50.9 Iron deficiency anemia, unspecified (principal); R19.7 Diarrhea, unspecified; K76.0 Fatty (change of) liver, not elsewhere classified
CPT/HCPCS: 36415; 74174; 82565; 84520; Q9967

== ENCOUNTER → 2023-12-17 | Outpatient (REF) | payer MEDICAID ==
[~2023-12-17] MED LIST changes: -ISOVUE-370 76% 100ML VIAL As Ordered ONE; +METF-877 PO; +METH4PACK PO; -ROSU20TA61 PO; +ROSU20TA86 PO
== END ==
LOC: M LAB REF 20:27
PROVIDERS: ATTEND Physician Assistant
DX: B34.9 Viral infection, unspecified (principal)

== ENCOUNTER 2023-12-18 11:57 | Inpatient (IN) | payer MEDICAID ==
[~2023-12-18] VITALS: Ht 172.7 cm; Wt 113.5 kg
[~2023-12-18 11:57] MED LIST changes: -METH4PACK PO
[2023-12-18] MEDS: ACETAMINOPHEN 500 MG TAB PO ONE (13:45)
[2023-12-18 15:41] LABS: BASO % 0.2 % (0.0-1.0); EOS % 0.2 % (0.0-3.0); HEMATOCRIT 31.2 % (42.0-52.0); HEMOGLOBIN 10.6 g/dl (13.5-17.5); LYMPH # 1.3 10^3/uL (1.5-5.0); LYMPH % 13.8 % (24.0-44.0); MEAN CORPUSCULAR HEMOGLOBIN 30.5 pg (27.0-33.0); MEAN CORPUSCULAR VOLUME 89.7 fl (80.0-96.0); MONO % 38.7 % (2.0-8.0); NEUTROPHILS # 4.2 10^3/uL (1.5-8.5); NEUTROPHILS % 45.7 % (36.0-66.0); PLATELET COUNT, AUTOMATED 207 10^3/uL (150-450); RED BLOOD COUNT 3.48 10^6/uL (4.30-6.10); WHITE BLOOD COUNT 9.1 10^3/uL (4.0-10.0)
[2023-12-18 16:01] LABS: MONO # 3.5 10^3/uL (0.0-0.8)
[2023-12-18 16:09] LABS: ERYTHROCYTE SEDIMENTATION RATE 54 mm/hr (0-20)
[2023-12-18 16:23] LABS: BLOOD UREA NITROGEN 28 MG/DL (9-23); CALCIUM LEVEL 7.6 MG/DL (8.3-10.6); CARBON DIOXIDE LEVEL 27 MMOL/L (20-31); CHLORIDE LEVEL 97 MMOL/L (98-107); CREATININE FOR GFR 1.17 MG/DL (0.70-1.30); GLOMERULAR FILTRATION RATE > 60.0 (>49); GLUCOSE, FASTING 120 MG/DL (74-106); POTASSIUM SERUM 3.5 MMOL/L (3.5-5.1); SODIUM LEVEL 132 MMOL/L (136-145)
[2023-12-18 17:38] LABS: IONIZED CALCIUM 3.9 MG/DL (4.5-5.3)
[2023-12-18] MEDS ORDERED: ISOVUE-370 76% 100ML VIAL As Ordered ONE (17:45)
[2023-12-18 18:15] LABS: MAGNESIUM LEVEL 1.1 MG/DL (1.8-2.4); PTH INTACT 120.1 PG/ML (18.5-88.0)
[2023-12-18] MEDS: MAG SULF 1GM/100ML (MAG RUN) 1 GM in IV 1 EA IV ONE (19:21)
[2023-12-18] MEDS ORDERED: METH4PACK PO (20:28)
[2023-12-18] MEDS ORDERED: METF-838 PO (20:28)
[2023-12-18] MEDS ORDERED: HOME MED LIST COMPLETE! XX SCH (20:30)
[2023-12-18] MEDS ORDERED: DEXTROSE 50% 50ML SYRINGE IV PRN (21:50)
[2023-12-18] MEDS ORDERED: GLUCAGON INJ 1MG VIAL SC PRN (21:50)
[2023-12-18] MEDS ORDERED: GLUCOSE 4 GM CHEW PO PRN (21:50)
[2023-12-18 22:11] LABS: TOTAL 25(OH) VITAMIN D 50.7 NG/ML (20.0-100.0)
[2023-12-18] MEDS: INSULIN LISPRO (NovoLOG) PER UNIT SC SCH (22:22)
[2023-12-18] MEDS: ACETAMINOPHEN 325 MG TAB PO PRN (22:22)
[2023-12-18 22:36] LABS: HIV 1&2 SCREEN NEGATIVE (NEGATIVE)
[2023-12-18 23:02] LABS: PHOSPHORUS LEVEL 4.1 MG/DL (2.4-5.1)
[2023-12-18 23:03] LABS: CPK CREATINE PHOSPHOKINASE 241 U/L (46-171)
[2023-12-19] VITALS (10 sets, daily range): BP systolic 116–159; BP diastolic 59–79; TEMP 97.7–100.7; O2SAT 91–96
[2023-12-19] MEDS: MAG SULF 1GM/100ML (MAG RUN) 1 GM in IV 1 EA IV ONE (01:59)
[2023-12-19] MEDS: KETOROLAC 30 MG/ML 1ML VIAL IV ONE (01:59)
[2023-12-19 06:46] LABS: BASO % 0.3 % (0.0-1.0); EOS % 0.7 % (0.0-3.0); HEMATOCRIT 29.3 % (42.0-52.0); HEMOGLOBIN 9.8 g/dl (13.5-17.5); LYMPH # 0.9 10^3/uL (1.5-5.0); LYMPH % 14.9 % (24.0-44.0); MEAN CORPUSCULAR HEMOGLOBIN 29.9 pg (27.0-33.0); MEAN CORPUSCULAR HGB CONC 33.4 g/dl (32.0-36.5); MEAN CORPUSCULAR VOLUME 89.3 fl (80.0-96.0); MONO # 2.4 10^3/uL (0.0-0.8); MONO % 40.2 % (2.0-8.0); NEUTROPHILS # 2.5 10^3/uL (1.5-8.5); NEUTROPHILS % 41.8 % (36.0-66.0); PLATELET COUNT, AUTOMATED 198 10^3/uL (150-450); RED BLOOD COUNT 3.28 10^6/uL (4.30-6.10); WHITE BLOOD COUNT 5.9 10^3/uL (4.0-10.0)
[2023-12-19 07:19] LABS: ALBUMIN 3.2 G/DL (3.2-5.2); ALKALINE PHOSPHATASE 67 U/L (40-129); ALT/SGPT 58 U/L (7.0-40); AST/SGOT 39 U/L (<34); BILIRUBIN,TOTAL 0.8 MG/DL (0.3-1.2); BLOOD UREA NITROGEN 27 MG/DL (9-23); CALCIUM LEVEL 8.1 MG/DL (8.3-10.6); CARBON DIOXIDE LEVEL 28 MMOL/L (20-31); CHLORIDE LEVEL 99 MMOL/L (98-107); CREATININE FOR GFR 0.98 MG/DL (0.70-1.30); GLOMERULAR FILTRATION RATE > 60.0 (>49); GLUCOSE, FASTING 107 MG/DL (74-106); MAGNESIUM LEVEL 1.7 MG/DL (1.8-2.4); POTASSIUM SERUM 3.6 MMOL/L (3.5-5.1); SODIUM LEVEL 135 MMOL/L (136-145); TOTAL PROTEIN 6.5 G/DL (5.7-8.2)
[2023-12-19] MEDS: INSULIN LISPRO (NovoLOG) PER UNIT SC SCH (07:30)
[2023-12-19] MEDS: ROSUVASTATIN 10 MG TAB (CRESTOR) PO SCH (08:44)
[2023-12-19] MEDS: PANTOPRAZOLE 40MG VIAL IV SCH (08:44)
[2023-12-19] MEDS: VITAMIN D 1,000 INTERNATIONAL UNITS TABLET PO SCH (08:44)
[2023-12-19] MEDS: lisinopriL 40MG TAB PO SCH (08:45)
[2023-12-19] MEDS: SPIRONOLACTONE 25 MG TAB PO SCH (08:45)
[2023-12-19] MEDS: FERROUS SULFATE 325MG TAB PO SCH (08:45)
[2023-12-19] MEDS: atenoloL 50 MG TAB PO SCH (08:46)
[2023-12-19] MEDS: SERTRALINE HCL 50 MG TAB PO SCH (08:46)
[2023-12-19] MEDS: MAG SULF 1GM/100ML (MAG RUN) 1 GM in IV 1 EA IV SCH (11:25)
[2023-12-20] VITALS (8 sets, daily range): BP systolic 121–149; BP diastolic 45–65; TEMP 97.2–98.2; O2SAT 91–95
[2023-12-20 06:04] LABS: BASO % 0.2 % (0.0-1.0); EOS # 0.1 10^3/uL (0.0-0.5); EOS % 1.7 % (0.0-3.0); HEMATOCRIT 28.8 % (42.0-52.0); HEMOGLOBIN 9.6 g/dl (13.5-17.5); LYMPH # 0.9 10^3/uL (1.5-5.0); LYMPH % 19.8 % (24.0-44.0); MEAN CORPUSCULAR HEMOGLOBIN 30.4 pg (27.0-33.0); MEAN CORPUSCULAR HGB CONC 33.3 g/dl (32.0-36.5); MEAN CORPUSCULAR VOLUME 91.1 fl (80.0-96.0); MONO # 1.6 10^3/uL (0.0-0.8); MONO % 33.8 % (2.0-8.0); PLATELET COUNT, AUTOMATED 205 10^3/uL (150-450); RED BLOOD COUNT 3.16 10^6/uL (4.30-6.10); WHITE BLOOD COUNT 4.7 10^3/uL (4.0-10.0)
[2023-12-20 06:28] LABS: BLOOD UREA NITROGEN 27 MG/DL (9-23); CALCIUM LEVEL 8.4 MG/DL (8.3-10.6); CARBON DIOXIDE LEVEL 30 MMOL/L (20-31); CHLORIDE LEVEL 100 MMOL/L (98-107); GLOMERULAR FILTRATION RATE > 60.0 (>49); GLUCOSE, FASTING 114 MG/DL (74-106); MAGNESIUM LEVEL 2.6 MG/DL (1.8-2.4); POTASSIUM SERUM 3.6 MMOL/L (3.5-5.1); SODIUM LEVEL 134 MMOL/L (136-145)
[2023-12-20] MEDS ORDERED: ROCURONIUM BROMIDE 50MG/5ML VIAL As Ordered ONE (09:30)
[2023-12-20] MEDS ORDERED: propofoL 200 MG/20 ML VIAL As Ordered ONE (09:30)
[2023-12-20] MEDS ORDERED: LIDOCAINE 2% 100MG/5ML SDV (FOR ANES.) As Ordered ONE (09:30)
[2023-12-20] MEDS ORDERED: SUGAMMADEX SODIUM 500 MG/5 ML VIAL (BRIDION) As Ordered ONE (09:31)
[2023-12-20] MEDS ORDERED: MIDAZOLAM INJ 2MG/2ML VIAL As Ordered ONE (09:32)
[2023-12-20] MEDS ORDERED: fentaNYL 100 MCG/2 ML INJECTION As Ordered ONE (09:32)
[2023-12-20] MEDS ORDERED: ONDANSETRON 4MG 2ML VIAL IV PRN (10:30)
[2023-12-20] MEDS ORDERED: fentaNYL 100 MCG/2 ML INJECTION IV PRN (10:30)
[2023-12-20] MEDS ORDERED: ALBUTEROL SULFATE 2.5MG/0.5ML INH NEB SOLN INH ONE (10:30)
[2023-12-20] MEDS ORDERED: PERCOCET 5MG/325MG TAB PO PRN (10:30)
[2023-12-20] MEDS: CETACAINE SPRAY 5GM As Ordered ONE (11:01)
[2023-12-20] MEDS: THROMBIN 20,000 UNITS KIT As Ordered ONE (11:02)
[2023-12-20] MEDS ORDERED: ONDANSETRON 4MG 2ML VIAL As Ordered ONE (11:57)
[2023-12-20] MEDS: EPINEPHrine 1MG/10ML SYRINGE 1.5IN As Ordered ONE (12:38)
[2023-12-20] MEDS: THROMBIN 5,000 UNITS VIAL As Ordered ONE (12:38)
[2023-12-20 15:24] LABS: ANGIOTENSIN 1 CONVERTING ENZYM 12 U/L (9-67)
[2023-12-21 03:33] VITALS: BP 144/61; TEMP 97.2; O2SAT 95
[2023-12-21 03:36] VITALS: BP_SYST 134; BP_SYST 141; BP_SYST 144; BP_DIAS 49; BP_DIAS 60; BP_DIAS 61
[2023-12-21 06:04] LABS: BASO % 0.2 % (0.0-1.0); EOS % 0.6 % (0.0-3.0); HEMATOCRIT 28.4 % (42.0-52.0); HEMOGLOBIN 9.3 g/dl (13.5-17.5); LYMPH # 1.2 10^3/uL (1.5-5.0); LYMPH % 24.7 % (24.0-44.0); MEAN CORPUSCULAR HEMOGLOBIN 29.5 pg (27.0-33.0); MEAN CORPUSCULAR HGB CONC 32.7 g/dl (32.0-36.5); MEAN CORPUSCULAR VOLUME 90.2 fl (80.0-96.0); MONO # 1.5 10^3/uL (0.0-0.8); MONO % 30.1 % (2.0-8.0); NEUTROPHILS # 2.1 10^3/uL (1.5-8.5); NEUTROPHILS % 42.7 % (36.0-66.0); PLATELET COUNT, AUTOMATED 232 10^3/uL (150-450); RED BLOOD COUNT 3.15 10^6/uL (4.30-6.10); WHITE BLOOD COUNT 4.8 10^3/uL (4.0-10.0)
[2023-12-21 06:28] LABS: BLOOD UREA NITROGEN 31 MG/DL (9-23); CALCIUM LEVEL 8.3 MG/DL (8.3-10.6); CARBON DIOXIDE LEVEL 29 MMOL/L (20-31); CHLORIDE LEVEL 100 MMOL/L (98-107); CREATININE FOR GFR 0.93 MG/DL (0.70-1.30); GLOMERULAR FILTRATION RATE > 60.0 (>49); GLUCOSE, FASTING 114 MG/DL (74-106); MAGNESIUM LEVEL 2.4 MG/DL (1.8-2.4); SODIUM LEVEL 133 MMOL/L (136-145)
[2023-12-21 08:00] VITALS: BP 100/62; TEMP 97.3; O2SAT 94
[2023-12-21 08:35] VITALS: BP 100/57
[2023-12-21 12:00] VITALS: BP 141/60; TEMP 97; O2SAT 93
[2023-12-21 12:22] LABS: QuantiFERON-TB Gold Plus NEGATIVE (NEGATIVE)
[2023-12-21 16:11] LABS: ANA SCREEN, IFA POSITIVE (NEGATIVE)
== END 2023-12-21 17:07 | disposition home or self-care (01) | DRG 663 ==
LOC: M ED 11:57 → M ED INP 21:22 → M MSPAV 12-19 00:50
PROVIDERS: ADMIT Student in an Organized Health Care Education/Training Program; ATTEND Student in an Organized Health Care Education/Training Program
PROC: 0BBK8ZX Excision of Right Lung, Via Natural or Artificial Opening Endoscopic, Diagnostic (ICD-10-PCS; principal; 2023-12-20 11:30)
DX: R59.0 Localized enlarged lymph nodes (principal); I10 Essential (primary) hypertension; E83.42 Hypomagnesemia; D50.9 Iron deficiency anemia, unspecified; D86.9 Sarcoidosis, unspecified; E11.9 Type 2 diabetes mellitus without complications; E83.51 Hypocalcemia; E78.5 Hyperlipidemia, unspecified; F39 Unspecified mood [affective] disorder; K21.9 Gastro-esophageal reflux disease without esophagitis; R21 Rash and other nonspecific skin eruption; R55 Syncope and collapse; G47.30 Sleep apnea, unspecified; Z87.891 Personal history of nicotine dependence; Z79.899 Other long term (current) drug therapy

== ENCOUNTER → 2024-01-07 | Outpatient (CLI) | payer MEDICAID ==
[~2024-01-07] MED LIST changes: +METH4PACK PO
[2024-01-07 16:53] LABS: BASO % 0.5 % (0.0-1.0); EOS # 0.1 10^3/uL (0.0-0.5); EOS % 2.9 % (0.0-3.0); HEMATOCRIT 32.1 % (42.0-52.0); HEMOGLOBIN 10.6 g/dl (13.5-17.5); LYMPH # 1.1 10^3/uL (1.5-5.0); LYMPH % 29.9 % (24.0-44.0); MEAN CORPUSCULAR VOLUME 90.9 fl (80.0-96.0); MONO # 0.8 10^3/uL (0.0-0.8); NEUTROPHILS # 1.7 10^3/uL (1.5-8.5); NEUTROPHILS % 44.8 % (36.0-66.0); PLATELET COUNT, AUTOMATED 161 10^3/uL (150-450); RED BLOOD COUNT 3.53 10^6/uL (4.30-6.10); WHITE BLOOD COUNT 3.8 10^3/uL (4.0-10.0)
[2024-01-07 16:58] LABS: ALBUMIN 3.5 G/DL (3.2-5.2); ALKALINE PHOSPHATASE 74 U/L (40-129); ALT/SGPT 26 U/L (7.0-40); AST/SGOT 15 U/L (<34); BILIRUBIN,TOTAL 0.5 MG/DL (0.3-1.2); BLOOD UREA NITROGEN 14 MG/DL (9-23); CALCIUM LEVEL 8.9 MG/DL (8.3-10.6); CARBON DIOXIDE LEVEL 27 MMOL/L (20-31); CHLORIDE LEVEL 103 MMOL/L (98-107); CREATININE FOR GFR 0.77 MG/DL (0.70-1.30); GLOMERULAR FILTRATION RATE > 60.0 (>49); GLUCOSE, FASTING 184 MG/DL (74-106); POTASSIUM SERUM 3.8 MMOL/L (3.5-5.1); SODIUM LEVEL 137 MMOL/L (136-145); TOTAL PROTEIN 7.1 G/DL (5.7-8.2)
== END ==
LOC: M LRY 14:16
PROVIDERS: ATTEND Internal Medicine Hematology & Oncology
DX: D72.821 Monocytosis (symptomatic) (principal)

== ENCOUNTER → 2024-04-21 | Outpatient (CLI) | payer OTHER | LOC: M RAD 10:03 | PROVIDERS: ATTEND Internal Medicine Critical Care Medicine | DX: R91.8 Other nonspecific abnormal finding of lung field (principal) ==

== ENCOUNTER → 2024-05-07 | Outpatient (CLI) | payer OTHER ==
[2024-05-07 12:32] LABS: BASO % 0.3 % (0.0-1.0); EOS # 0.2 10^3/uL (0.0-0.5); EOS % 2.8 % (0.0-3.0); HEMATOCRIT 36.3 % (42.0-52.0); HEMOGLOBIN 11.7 g/dl (13.5-17.5); LYMPH # 1.3 10^3/uL (1.5-5.0); LYMPH % 21.1 % (24.0-44.0); MEAN CORPUSCULAR HEMOGLOBIN 29.3 pg (27.0-33.0); MEAN CORPUSCULAR HGB CONC 32.2 g/dl (32.0-36.5); MEAN CORPUSCULAR VOLUME 90.8 fl (80.0-96.0); MONO # 1.3 10^3/uL (0.0-0.8); MONO % 21.6 % (2.0-8.0); NEUTROPHILS # 3.1 10^3/uL (1.5-8.5); NEUTROPHILS % 52.4 % (36.0-66.0); PLATELET COUNT, AUTOMATED 153 10^3/uL (150-450)
[2024-05-07 13:25] LABS: ALBUMIN 3.9 G/DL (3.2-5.2); ALKALINE PHOSPHATASE 60 U/L (40-129); ALT/SGPT 19 U/L (7.0-40); AST/SGOT 18 U/L (<34); BILIRUBIN,TOTAL 0.8 MG/DL (0.3-1.2); BLOOD UREA NITROGEN 14 MG/DL (9-23); CALCIUM LEVEL 8.9 MG/DL (8.3-10.6); CARBON DIOXIDE LEVEL 29 MMOL/L (20-31); CHLORIDE LEVEL 101 MMOL/L (98-107); CREATININE FOR GFR 0.76 MG/DL (0.70-1.30); GLOMERULAR FILTRATION RATE > 60.0 (>49); GLUCOSE, FASTING 114 MG/DL (74-106); POTASSIUM SERUM 4.4 MMOL/L (3.5-5.1); SODIUM LEVEL 141 MMOL/L (136-145); TOTAL PROTEIN 7.5 G/DL (5.7-8.2)
== END ==
LOC: M WUC 10:31
PROVIDERS: ATTEND Internal Medicine Hematology & Oncology
DX: D72.821 Monocytosis (symptomatic) (principal)

== ENCOUNTER → 2024-06-10 | Outpatient (CLI) | payer MEDICARE, OTHER ==
[~2024-06-10] MED LIST changes: +AMOX875T2 PO; +FERR325T19; +FLUTISP NARES; +PRED50TA57 PO
[2024-06-10 13:51] LABS: BASO % 0.6 % (0.0-1.0); EOS # 0.3 10^3/uL (0.0-0.5); EOS % 5.9 % (0.0-3.0); HEMATOCRIT 36.5 % (42.0-52.0); HEMOGLOBIN 12.5 g/dl (13.5-17.5); LYMPH # 1.2 10^3/uL (1.5-5.0); LYMPH % 23.4 % (24.0-44.0); MEAN CORPUSCULAR HEMOGLOBIN 30.4 pg (27.0-33.0); MEAN CORPUSCULAR HGB CONC 34.2 g/dl (32.0-36.5); MEAN CORPUSCULAR VOLUME 88.8 fl (80.0-96.0); MONO # 1.4 10^3/uL (0.0-0.8); MONO % 25.7 % (2.0-8.0); NEUTROPHILS # 2.1 10^3/uL (1.5-8.5); NEUTROPHILS % 39.6 % (36.0-66.0); PLATELET COUNT, AUTOMATED 146 10^3/uL (150-450); RED BLOOD COUNT 4.11 10^6/uL (4.30-6.10); WHITE BLOOD COUNT 5.3 10^3/uL (4.0-10.0)
[2024-06-10 14:26] LABS: ALBUMIN 3.9 G/DL (3.2-5.2); ALKALINE PHOSPHATASE 68 U/L (40-129); ALT/SGPT 27 U/L (7.0-40); AST/SGOT 25 U/L (<34); BILIRUBIN,TOTAL 0.9 MG/DL (0.3-1.2); BLOOD UREA NITROGEN 21 MG/DL (9-23); CALCIUM LEVEL 9.2 MG/DL (8.3-10.6); CARBON DIOXIDE LEVEL 28 MMOL/L (20-31); CHLORIDE LEVEL 100 MMOL/L (98-107); CREATININE FOR GFR 0.84 MG/DL (0.70-1.30); GLOMERULAR FILTRATION RATE > 90.0 (>49); GLUCOSE, FASTING 115 MG/DL (74-106); POTASSIUM SERUM 4.7 MMOL/L (3.5-5.1); SODIUM LEVEL 136 MMOL/L (136-145); TOTAL PROTEIN 7.3 G/DL (5.7-8.2)
[2024-06-10 14:28] LABS: THYROID STIMULATING HORMONE 1.552 uIU/ML (0.55-4.78)
[2024-06-10 14:29] LABS: FREE T4 1.04 NG/DL (0.89-1.76)
[2024-06-10 14:31] LABS: THYROID PEROXIDASE ANTIBODY < 28.0 U/ML (<60.0)
[2024-06-12 08:06] LABS: THYROGLOBULIN ANTIBODY < 15.0 U/ML (<60.0)
== END ==
LOC: M WUC 12:38
DX: E04.9 Nontoxic goiter, unspecified (principal)

== ENCOUNTER → 2024-06-10 | Outpatient (REF) | payer MEDICARE, OTHER | LOC: M SFHCLERA 17:35 | DX: J02.9 Acute pharyngitis, unspecified (principal) ==

== ENCOUNTER → 2024-06-12 | Outpatient (CLI) | payer MEDICARE, OTHER | LOC: M WHC 14:07 | DX: R59.9 Enlarged lymph nodes, unspecified (principal) ==

== ENCOUNTER 2024-06-13 08:34 | Observation (INO) | payer MEDICARE, OTHER ==
[~2024-06-13] VITALS: Ht 172.7 cm; Wt 154.7 kg
[~2024-06-13 08:34] MED LIST changes: -AMOX875T2 PO; -FERR325T19; -FLUTISP NARES; -PRED50TA57 PO
[2024-06-13] MEDS ORDERED: FERR325T19 (09:06)
[2024-06-13 10:24] LABS: BASO % 0.4 % (0.0-1.0); EOS # 0.2 10^3/uL (0.0-0.5); EOS % 4.1 % (0.0-3.0); HEMATOCRIT 36.2 % (42.0-52.0); HEMOGLOBIN 12.1 g/dl (13.5-17.5); LYMPH # 1.2 10^3/uL (1.5-5.0); LYMPH % 26.1 % (24.0-44.0); MEAN CORPUSCULAR HEMOGLOBIN 30.3 pg (27.0-33.0); MEAN CORPUSCULAR HGB CONC 33.4 g/dl (32.0-36.5); MEAN CORPUSCULAR VOLUME 90.7 fl (80.0-96.0); MONO # 0.9 10^3/uL (0.0-0.8); MONO % 20.2 % (2.0-8.0); NEUTROPHILS # 2.1 10^3/uL (1.5-8.5); NEUTROPHILS % 45.1 % (36.0-66.0); PLATELET COUNT, AUTOMATED 148 10^3/uL (150-450); RED BLOOD COUNT 3.99 10^6/uL (4.30-6.10); WHITE BLOOD COUNT 4.6 10^3/uL (4.0-10.0)
[2024-06-13] MEDS: dexAMETHasone 20MG/5ML VIAL IV ONE (10:45)
[2024-06-13] MEDS: AMPICILLIN SOD/SULBACTAM SOD 3 GM in DEXTROSE 5% (D5W) MINI-BAG PLU 100 ML IV ONE (10:46)
[2024-06-13 11:01] LABS: AMYLASE 27 U/L (30-118)
[2024-06-13 11:02] LABS: ALBUMIN 3.9 G/DL (3.2-5.2); ALKALINE PHOSPHATASE 68 U/L (40-129); ALT/SGPT 27 U/L (7.0-40); AST/SGOT 20 U/L (<34); BILIRUBIN,DIRECT 0.2 MG/DL (<0.4); BILIRUBIN,TOTAL 0.6 MG/DL (0.3-1.2); BLOOD UREA NITROGEN 18 MG/DL (9-23); C REACTIVE PROTEIN QUANTITATIV 0.94 MG/DL (<1.0); CALCIUM LEVEL 9.1 MG/DL (8.3-10.6); CARBON DIOXIDE LEVEL 28 MMOL/L (20-31); CHLORIDE LEVEL 103 MMOL/L (98-107); CPK CREATINE PHOSPHOKINASE 203 U/L (46-171); CREATININE FOR GFR 0.79 MG/DL (0.70-1.30); GLOMERULAR FILTRATION RATE > 90.0 (>49); GLUCOSE, FASTING 180 MG/DL (74-106); MB/CK RELATIVE INDEX 2.95 (< OR =4); POTASSIUM SERUM 4.4 MMOL/L (3.5-5.1); SODIUM LEVEL 139 MMOL/L (136-145); TOTAL PROTEIN 7.5 G/DL (5.7-8.2)
[2024-06-13 11:08] LABS: PROCALCITONIN 0.07 ng/ml
[2024-06-13] MEDS ORDERED: ISOVUE-370 76% 100ML VIAL As Ordered ONE (14:50)
[2024-06-13 15:16] LABS: ERYTHROCYTE SEDIMENTATION RATE 44 mm/hr (0-20)
[2024-06-13] MEDS ORDERED: ACETAMINOPHEN 325 MG TAB PO PRN (15:35)
[2024-06-13] MEDS: LR 1,000 ML IV SCH (15:35)
[2024-06-13] MEDS ORDERED: MOM 30ML SUSPENSION UDC PO PRN (15:35)
[2024-06-13 15:44] LABS: HIV 1&2 SCREEN NEGATIVE (NEGATIVE)
[2024-06-13] MEDS ORDERED: HOME MED LIST COMPLETE! XX SCH (15:45)
[2024-06-13] MEDS ORDERED: GLUCOSE 4 GM CHEW PO PRN (16:35)
[2024-06-13] MEDS ORDERED: GLUCAGON INJ 1MG VIAL SC PRN (16:35)
[2024-06-13] MEDS ORDERED: DEXTROSE 50% 50ML SYRINGE IV PRN (16:35)
[2024-06-13 17:15] VITALS: BP 187/70; TEMP 97.5; O2SAT 96
[2024-06-13 17:30] VITALS: O2SAT 95
[2024-06-13] MEDS: INSULIN LISPRO (NovoLOG) PER UNIT SC SCH ×2 (18:27→20:07)
[2024-06-13 19:49] VITALS: BP 166/72; TEMP 97.2; O2SAT 93
[2024-06-13] MEDS: AUGMENTIN 875 MG TAB PO SCH (20:05)
[2024-06-13] MEDS: CLOPIDOGREL 75 MG TAB PO SCH (20:05)
[2024-06-13] MEDS: DOCUSATE SODIUM 100MG CAPSULE PO SCH (20:06)
[2024-06-13] MEDS: FLUTICASONE PROP 0.05% NASAL SPRAY 16 GM (FLONASE) NARES SCH (20:07)
[2024-06-13] MEDS: SODIUM CHLORIDE NASAL 0.65% SPRAY BTL (OCEAN) SCH (20:07)
[2024-06-14 04:00] VITALS: BP 169/82; TEMP 97.6; O2SAT 97
[2024-06-14 06:25] LABS: HEMATOCRIT 35.9 % (42.0-52.0); HEMOGLOBIN 12.1 g/dl (13.5-17.5); MEAN CORPUSCULAR HEMOGLOBIN 30.5 pg (27.0-33.0); MEAN CORPUSCULAR HGB CONC 33.7 g/dl (32.0-36.5); MEAN CORPUSCULAR VOLUME 90.4 fl (80.0-96.0); PLATELET COUNT, AUTOMATED 147 10^3/uL (150-450); RED BLOOD COUNT 3.97 10^6/uL (4.30-6.10); WHITE BLOOD COUNT 7.7 10^3/uL (4.0-10.0)
[2024-06-14 06:34] LABS: BLOOD UREA NITROGEN 21 MG/DL (9-23); CALCIUM LEVEL 9.2 MG/DL (8.3-10.6); CARBON DIOXIDE LEVEL 27 MMOL/L (20-31); CHLORIDE LEVEL 102 MMOL/L (98-107); CREATININE FOR GFR 0.72 MG/DL (0.70-1.30); GLOMERULAR FILTRATION RATE > 90.0 (>49); GLUCOSE, FASTING 150 MG/DL (74-106); POTASSIUM SERUM 4.4 MMOL/L (3.5-5.1); SODIUM LEVEL 138 MMOL/L (136-145)
[2024-06-14 06:56] LABS: ATYPICAL LYMPH 9 % (0-5); LYMPHOCYTES 7 % (16-44); METAMYELOCYTES 1 % (0-0); MONOCYTES 5 % (0-5); NEUTROPHILS 77 % (28-66)
[2024-06-14 06:58] LABS: PLATELET ESTIMATE NORMAL (NORMAL)
[2024-06-14] MEDS: ROSUVASTATIN 10 MG TAB (CRESTOR) PO SCH (08:11)
[2024-06-14] MEDS: VITAMIN D 1,000 INTERNATIONAL UNITS TABLET PO SCH (08:11)
[2024-06-14] MEDS: OMEPRAZOLE 20MG CAP PO SCH (08:12)
[2024-06-14] MEDS: FERROUS SULFATE 325MG TAB PO SCH (08:12)
[2024-06-14] MEDS: SPIRONOLACTONE 25 MG TAB PO SCH (08:12)
[2024-06-14 08:13] VITALS: BP 187/65
[2024-06-14] MEDS: lisinopriL 40MG TAB PO SCH (08:13)
[2024-06-14] MEDS: atenoloL 50 MG TAB PO SCH (08:14)
[2024-06-14] MEDS ORDERED: PRED50TA57 PO (09:47)
[2024-06-14] MEDS ORDERED: AMOX875T2 PO (09:47)
[2024-06-14] MEDS ORDERED: FLUTISP NARES (09:47)
== END 2024-06-14 10:35 | disposition home or self-care (01) ==
LOC: M ED 08:34 → INTOOBSV 16:05 → M ED INP 16:05 → M MS5PR 17:12
PROVIDERS: ADMIT Student in an Organized Health Care Education/Training Program; ATTEND Student in an Organized Health Care Education/Training Program
DX: K11.8 Other diseases of salivary glands (principal); R59.0 Localized enlarged lymph nodes; D72.829 Elevated white blood cell count, unspecified; N64.9 Disorder of breast, unspecified; I10 Essential (primary) hypertension; E78.5 Hyperlipidemia, unspecified; G47.33 Obstructive sleep apnea (adult) (pediatric); K21.9 Gastro-esophageal reflux disease without esophagitis; M10.9 Gout, unspecified; E55.9 Vitamin D deficiency, unspecified; I73.9 Peripheral vascular disease, unspecified; Z79.2 Long term (current) use of antibiotics; Z79.899 Other long term (current) drug therapy; Z79.84 Long term (current) use of oral hypoglycemic drugs; Z79.52 Long term (current) use of systemic steroids
CPT/HCPCS: 36415; 70490; 70491; 71046; 71260; 80048; 80076; 82150; 82550; 82553; 83605; 84145; 84484; 85025; 85652; 86140; 87040; 87389; 87486; 87581; 87633; 87798; 93005; 93041; 94760; 96361; 96365; 96375; 96376; 99285; G0378; J0295; J1100; J1815; Q9967

== ENCOUNTER → 2024-06-13 | Outpatient (CLI) | payer MEDICARE, OTHER | LOC: M RAD 06:25 | DX: E04.9 Nontoxic goiter, unspecified (principal) ==

== ENCOUNTER → 2024-07-01 | Outpatient (CLI) | payer MEDICARE, OTHER ==
[~2024-07-01] MED LIST changes: +AMOX875T2 PO; +FERR325T19; +FLUTISP NARES; +PRED50TA57 PO
== END ==
LOC: M PLARAD 08:17
PROVIDERS: ATTEND Internal Medicine Critical Care Medicine
DX: R91.8 Other nonspecific abnormal finding of lung field (principal)
CPT/HCPCS: 78815; A9552

== ENCOUNTER → 2024-09-15 | Outpatient (CLI) | payer MEDICARE ==
[~2024-09-15] MED LIST changes: +FLON1SPR; +LISI40TA10 PO; -LISI40TA4 PO
[2024-09-15 12:11] LABS: CHOLESTEROL LEVEL 147.0 MG/DL (<200); CHOLESTEROL RISK RATIO 4.06 (<5); IRON (FE) 65.0 UG/DL (65-175); LDL CHOLESTEROL 69.6 MG/DL (<100); NON-HDL-C 110.8 MG/DL; PERCENT SATURATION 23.3 % (19.7-50.0); TRIGLYCERIDES LEVEL 206.0 MG/DL (<150)
[2024-09-15 12:17] LABS: ESTIMATED AVERAGE GLUCOSE 120.0 MG/DL (60-110)
[2024-09-15 12:34] LABS: CREATININE, URINE 67.4 MG/DL; MALB URINE SIEMENS 6.0 MG/L; MAU/CREAT RATIO 8.9 MCG/MG (0.0-30.0)
== END ==
LOC: M WUC 09:31
PROVIDERS: ATTEND Internal Medicine
DX: D50.9 Iron deficiency anemia, unspecified (principal); E08.69 Diabetes mellitus due to underlying condition with other specified complication

== ENCOUNTER → 2024-09-25 | Outpatient (REF) | payer MEDICARE ==
[2024-09-25 17:46] LABS: APPEARANCE, URINE CLEAR (CLEAR); BACTERIA, URINE AUTO NEGATIVE (NEGATIVE); BILIRUBIN, URINE AUTO NEGATIVE (NEGATIVE); BLOOD, URINE BLOOD NEGATIVE (NEGATIVE); GLUCOSE, URINE (UA) AUTO NEGATIVE (NEGATIVE); KETONE, URINE AUTO NEGATIVE (NEGATIVE); LEUKOCYTE ESTERASE, URINE AUTO NEGATIVE (NEGATIVE); MUCUS, URINE SMALL (NEGATIVE); NITRITE, URINE AUTO NEGATIVE (NEGATIVE); PROTEIN, URINE AUTO NEGATIVE (NEGATIVE); RBC, URINE AUTO 0 /HPF (0-3); SPECIFIC GRAVITY URINE AUTO 1.015 (1.002-1.035); SQUAMOUS EPITHELIAL CELL UR AU 0 /HPF (0-6); UROBILINOGEN, URINE AUTO 0.2 mg/dL (0.0-2.0); WBC, URINE AUTO 0 /HPF (0-3)
[2024-09-25 18:14] LABS: BASO # 0.0 10^3/uL (0.0-0.2); BASO % 0.3 % (0.0-1.0); EOS # 0.2 10^3/uL (0.0-0.5); EOS % 3.0 % (0.0-3.0); LYMPH # 1.2 10^3/uL (1.5-5.0); LYMPH % 17.1 % (24.0-44.0); MONO # 1.8 10^3/uL (0.0-0.8); MONO % 26.4 % (2.0-8.0); NEUTROPHILS # 3.4 10^3/uL (1.5-8.5); NEUTROPHILS % 50.2 % (36.0-66.0); PLATELET COUNT, AUTOMATED 165 10^3/uL (150-450)
[2024-09-25 18:20] LABS: C REACTIVE PROTEIN QUANTITATIV 2.41 MG/DL (<1.0)
[2024-09-25 18:21] LABS: LDH LACTATE DEHYDROGENASE 82 U/L (120-246)
[2024-09-25 18:22] LABS: COMPLEMENT C4 33.3 MG/DL (12-36)
[2024-09-25 18:25] LABS: ALT/SGPT 25 U/L (7.0-40); AST/SGOT 20 U/L (<34); CALCIUM LEVEL 8.9 MG/DL (8.3-10.6); CARBON DIOXIDE LEVEL 27 MMOL/L (20-31); CHLORIDE LEVEL 98 MMOL/L (98-107); CPK CREATINE PHOSPHOKINASE 185 U/L (46-171); CREATININE FOR GFR 0.89 MG/DL (0.70-1.30); GLOMERULAR FILTRATION RATE > 90.0 (>49); POTASSIUM SERUM 4.3 MMOL/L (3.5-5.1); SODIUM LEVEL 136 MMOL/L (136-145); TOTAL 25(OH) VITAMIN D 60.5 NG/ML (20.0-100.0)
[2024-09-25 18:32] LABS: ERYTHROCYTE SEDIMENTATION RATE 40 mm/hr (0-20)
[2024-09-26 15:37] LABS: TOTAL PROTEIN,RANDOM URINE 14.5 MG/DL (0.0-14.0)
[2024-09-29 17:39] LABS: ANGIOTENSIN 1 CONVERTING ENZYM < 5 U/L (9-67)
[2024-09-30 14:06] LABS: IgG SUBCLASS 4(ONLY) 53.9 mg/dL (4.0-86.0)
[2024-09-30 17:52] LABS: ALDOLASE 3.8 U/L (< OR = 8.1)
[2024-10-01 16:06] LABS: COMPLEMENT TOTAL (CH50) > 60 U/mL (31-60)
== END ==
LOC: M SFHCRHEU 14:34
PROVIDERS: ATTEND Internal Medicine Rheumatology
DX: R76.8 Other specified abnormal immunological findings in serum (principal); R79.82 Elevated C-reactive protein (CRP); Z87.39 Personal history of other diseases of the musculoskeletal system and connective tissue; R59.0 Localized enlarged lymph nodes; R21 Rash and other nonspecific skin eruption; Z79.899 Other long term (current) drug therapy